=== PATIENT | female | born 1935 | race Two or more races ===

== ENCOUNTER 2019-12-08 23:13 | Emergency (ER) | payer MEDICARE ==
[~2019-12-08] VITALS: Ht 165.1 cm; Wt 68.0 kg
--- NOTE | 2019-12-08 23:55 | NUR ---
PT IS IN RADIOLOGY FOR CT ON [facility]
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
--- NOTE | 2019-12-09 00:43 | NUR ---
ATTEMPTED TO CONTACT DR. PARKER, LEFT MESSAGE. WILL FOLLOW UP
[2019-12-09 00:50] LABS: BASOPHILS # (AUTO) 0.1 /CMM (0.0-0.2); BASOPHILS % (AUTO) 0.5 % (0.0-2.0); EOSINOPHILS % (AUTO) 2.1 % (0.0-6.0); HEMATOCRIT 31 % (33-45); LYMPHOCYTES # (AUTO) 0.9 /CMM (0.8-4.8); LYMPHOCYTES % (AUTO) 7.9 % (20.0-44.0); MEAN CORPUSCULAR HGB CONC 32 g/dl (31.0-36.0); MEAN CORPUSCULAR VOLUME 95 fL (82-100); MONOCYTES # (AUTO) 0.6 /CMM (0.1-1.30); MONOCYTES % (AUTO) 5.2 % (2.0-12.0); NEUTROPHILS # (AUTO) 9.5 /CMM (1.8-8.9); NEUTROPHILS % (AUTO) 84.3 % (43.0-81.0); PLATELET COUNT (AUTO) 317 /CMM (150-450); RED BLOOD CELL COUNT(AUTO) 3.28 MIL/uL (4.0-5.2); WHITE BLOOD COUNT (AUTO) 11.2 K/uL (4.3-11.0)
--- NOTE | 2019-12-09 00:50 | NUR ---
IV LINE OBTAINED ON THE R AC 20G. BLOOD DRAWN AND GIVEN TO ED MANAGER AT BEDSIDE
[2019-12-09] MEDS ORDERED: IV NS 0.9% 500 ML BAG IV ONE (01:00)
--- NOTE | 2019-12-09 01:02 | NUR ---
ATTEMPTED TO CONTACT DR. PARKER, LEFT MESSAGE. WILL FOLLOW UP
[2019-12-09] MEDS ORDERED: TRAM50TA2 PO (01:11)
[2019-12-09] MEDS ORDERED: PANT40TA4 PO (01:11)
[2019-12-09] MEDS ORDERED: ASCO500T10 PO (01:11)
[2019-12-09] MEDS ORDERED: GABA-532 PO (01:11)
[2019-12-09] MEDS ORDERED: CLON0.5T4 PO (01:11)
[2019-12-09] MEDS ORDERED: ACET-73 PO (01:11)
[2019-12-09] MEDS ORDERED: CLOP75TA15 PO (01:11)
[2019-12-09] MEDS ORDERED: ASPI-1169 PO (01:11)
[2019-12-09] MEDS ORDERED: CALC-701 PO (01:11)
[2019-12-09] MEDS ORDERED: FISH1CAP16 PO (01:11)
[2019-12-09] MEDS ORDERED: MELA5TAB PO (01:11)
[2019-12-09] MEDS ORDERED: CARV12.52 PO (01:11)
[2019-12-09] MEDS ORDERED: FLUT1DIS3 IH (01:11)
[2019-12-09] MEDS ORDERED: SOLI10TA2 PO (01:11)
[2019-12-09] MEDS ORDERED: ATOR10TA PO (01:11)
[2019-12-09 01:12] LABS: CALCIUM, SERUM 8.6 mg/dL (8.5-10.1); CARBON DIOXIDE 32 mmol/L (21-32); CHLORIDE 100 mmol/L (98-107); CREATININE 0.9 mg/dL (0.6-1.3); GLUCOSE 120 mg/dL (74-106); POTASSIUM 3.8 mmol/L (3.5-5.1); SODIUM SERUM 137 mmol/L (136-145); UREA NITROGEN, BLOOD 15 mg/dL (7-18)
--- NOTE | 2019-12-09 01:35 | NUR ---
ATTEMPTED TO CONTACT DR. PARKER. WILL FOLLOW UP
--- NOTE | 2019-12-09 01:50 | NUR ---
ATTEMPTED TO CONTACT DR. RAYMOND (NEUROSURGEON, ) NO ANSWER, LEFT MESSAGE. WILL FOLLW UP
--- NOTE | 2019-12-09 02:43 | NUR ---
ATTEMPTED TO CONTACT DR. PARKER. UNABLE TO LEAVE MESSAGE, MAILBOX FULL
--- NOTE | 2019-12-09 02:46 | NUR ---
ATTEMPTED TO CONTACT DR. RAYMOND, LEFT MESSAGE. WILL FOLLOW UP
--- NOTE | 2019-12-09 03:05 | NUR ---
SPOKE WITH SHREYAS FROM [facility] FOR POSSIBLE TRANSFER. WILL CONTACT NEUROSURGEON THEN CALL BACK
--- NOTE | 2019-12-09 03:07 | NUR ---
NOTED HYPERTENSION, ER MD AWARE
--- NOTE | 2019-12-09 03:14 | NUR ---
PT ACCEPTED BY NEUROSURGEON DR. JETT AT [facility] NUMBER FOR REPORT: [phone] [facility] ETA 30-45MINUTES
--- NOTE | 2019-12-09 03:25 | NUR ---
CLINICAL INFORMATION FAXED TO [facility]
--- NOTE | 2019-12-09 03:37 | NUR ---
REPORT GIVEN TO AWAIS ARGUETA AT [facility]. AWAITING FOR PT TRANSPORT
--- NOTE | 2019-12-09 03:55 | NUR ---
[facility] [address] AT BEDSIDE [facility]PR PT TRANSPORT TO [facility]. REPORT GIVEN. PT IN IN STABLE CONDITION FOR TRANSPORT.
[2019-12-09 03:56] VITALS: BP 141/53
== END 2019-12-09 03:57 | disposition short-term general hospital (02) ==
LOC: ER 23:13
DX: S06.5X0A Traumatic subdural hemorrhage without loss of consciousness, initial encounter (principal); S00.83XA Contusion of other part of head, initial encounter; I10 Essential (primary) hypertension; E78.5 Hyperlipidemia, unspecified; K21.9 Gastro-esophageal reflux disease without esophagitis; Z98.890 Other specified postprocedural states; Z88.5 Allergy status to narcotic agent; Z79.899 Other long term (current) drug therapy; Z79.82 Long term (current) use of aspirin; W18.39XA Other fall on same level, initial encounter; Y93.89 Activity, other specified; Y92.89 Other specified places as the place of occurrence of the external cause; Y99.8 Other external cause status
CPT/HCPCS: 36415; 70450; 71045; 80048; 84484; 85025; 85730; 86850; 87081; 93005; 99285; J7040